=== PATIENT | female | born 1955 | race Caucasian/White ===

== ENCOUNTER 2016-08-11 15:04 | Emergency (ER) | payer OTHER ==
[2016-08-11 15:32] LABS: COLOR COLORLESS; LEUKOCYTE ESTERASE,URINE NEGATIVE (NEGATIVE); NITRITE,URINE NEGATIVE (NEGATIVE)
--- NOTE | 2016-08-11 16:04 | EDPHY ---
H & P Stated Complaint: ABD PAIN AND FLU SYMPTOMS Time Seen by Provider: 08/11/16 16:02 HPI/ROS: CHIEF COMPLAINT: epigastric and abdominal pain HISTORY OF PRESENT ILLNESS: 61-year-old female presents to the emergency department complaining a 2-3 week history of intermittent epigastric and upper abdominal pain that has worsened over the last few days. Patient reports URI symptoms times 2-3 weeks, she was seen at urgent care yesterday and started on a Z-Elias for a sinusitis. Patient states she has been drinking more coffee than usual and has not been eating very much. Patient describes the pain as a burning sensation. She states it is worse when lying flat, better after drinking water, better after eating sometimes. Mild nausea. Patient states she had fevers a week ago with her cold symptoms, no fever in 6 days. No diarrhea, no blood in her stool, no melena. She denies urinary urgency, frequency or dysuria, no previous abdominal surgeries. REVIEW OF SYSTEMS: A comprehensive 10 point review of systems is otherwise negative aside from elements mentioned in the history of present illness. Source: Patient Exam Limitations: No limitations - Personal History Current Tetanus Diphtheria and Acellular Pertussis (TDAP): Yes - Medical/Surgical History Hx Asthma: No Hx Chronic Respiratory Disease: No Hx Diabetes: No Hx Cardiac Disease: No Hx Renal Disease: No Hx Cirrhosis: No Hx Alcoholism: No Hx HIV/AIDS: No Hx Splenectomy or Spleen Trauma: No Other PMH: DENIES - Social History Smoking Status: Never smoked - Physical Exam Exam: Physical Exam Gen: Alert and Oriented, NAD HEENT: PERRL, moist mucous membranes NECK: no meningismus CV: regular rate and regular rhythm PULM: CTAB, no wheezes ABDOMEN: soft, mild epigastric, right upper quadrant and left upper quadrant tenderness to palpation, negative Rovsing's, no rebound tenderness, no guarding , no peritoneal signs, BS present BACK: No CVA tenderness NEURO: Neurologically grossly intact EXTREMITIES: normal appearing SKIN: no rash or break in skin on exposed skin PSYCH: answers questions appropriately. Constitutional: Initial Vital Signs Temperature (C) 37.0 C 08/11/16 15:14 Heart Rate 88 08/11/16 15:14 Respiratory Rate 16 08/11/16 15:14 Blood Pressure 163/85 H 08/11/16 15:14 O2 Sat (%) 96 08/11/16 15:14 O2 Delivery Mode Room Air Allergies/Adverse Reactions: cefdinir [From Omnicef] Allergy (Verified 10/30/15 14:49) Home Medications: Medication Instructions Recorded Azithromycin 08/11/16 IBUPROFEN 08/11/16 Medical Decision Making - Diagnostics EKG Interpretation: EKG shows normal sinus rhythm, rate 80, normal axis, good R-wave progression, no ST or T-wave abnormalities Imaging: Right upper quadrant ultrasound Findings: There are no gallstones, gallbladder wall thickening or pericholecystic fluid. The liver , right kidney, pancreas, and common duct are normal. There is no ascites. The visualized aorta and IVC are normal. Impression: Normal study. Is also discussed with Iván Lacey at 5:00 PM Dictated By: Devin Lyons MD ED Course/Re-evaluation: 530pm-patient reports discomfort is gone after GI cocktail. Right upper quadrant ultrasound is normal. Patient has a normal CBC, normal chemistry panel including LFTs, lipase. EKG is normal, vital signs are normal and urinalysis is normal. I am recommending the patient start 150 mg of ranitidine twice daily for 2 weeks. I have recommended limiting her coffee, spicy, acidic, greasy foods. I discussed small frequent meals, sleeping with the head of her bed elevated and have recommended establishing a primary care doctor. She has been given the name of the 1 promotions officer. Patient has been given return precautions for any worsening symptoms, new symptoms or concerns. Differential Diagnosis: The differential diagnosis for the patient's abdominal pain included but was not limited to cholecystitis, pancreatitis, GERD, gastritis, ACS - Data Points Laboratory Results: Laboratory Results 08/11/16 16:24 08/11/16 16:24 08/11/16 08/11/16 08/11/16 16:24 16:24 15:20 WBC 5.87 10^3/uL 10^3/uL (3.80-9.50) RBC 4.44 10^6/uL 10^6/uL (4.18-5.33) Hgb 13.2 g/dL g/dL (12.6-16.3) Hct 39.0 % % (38.0-47.0) MCV 87.8 fL fL (81.5-99.8) MCH 29.7 pg pg (27.9-34.1) MCHC 33.8 g/dL g/dL (32.4-36.7) RDW 12.5 % % (11.5-15.2) Plt Count 360 10^3/uL 10^3/uL (150-400) MPV 9.9 fL fL (8.7-11.7) Neut % (Auto) 61.8 % % (39.3-74.2) Lymph % (Auto) 31.2 % % (15.0-45.0) [place] % (Auto) 6.1 % % (4.5-13.0) Eos % (Auto) 0.3 % L % (0.6-7.6) Baso % (Auto) 0.3 % % (0.3-1.7) Nucleat RBC Rel Count 0.0 % % (0.0-0.2) Absolute Neuts (auto) 3.62 10^3/uL 10^3/uL (1.70-6.50) Absolute Lymphs (auto) 1.83 10^3/uL 10^3/uL (1.00-3.00) Absolute Monos (auto) 0.36 10^3/uL 10^3/uL (0.30-0.80) Absolute Eos (auto) 0.02 10^3/uL L 10^3/uL (0.03-0.40) Absolute Basos (auto) 0.02 10^3/uL 10^3/uL (0.02-0.10) Absolute Nucleated RBC 0.00 10^3/uL 10^3/uL (0-0.01) Immature Gran % 0.3 % % (0.0-1.1) Immature Gran # 0.02 10^3/uL 10^3/uL (0.00-0.10) Sodium 141 mEq/L mEq/L (134-144) Potassium 3.9 mEq/L mEq/L (3.5-5.2) Chloride 106 mEq/L mEq/L (97-110) Carbon Dioxide 23 mEq/l mEq/l (22-31) Anion Gap 12 mEq/L mEq/L (8-16) BUN 12 mg/dL mg/dL (7-23) Creatinine 0.7 mg/dL mg/dL (0.6-1.0) Estimated GFR > 60 Glucose 92 mg/dL mg/dL (70-100) Calcium 9.8 mg/dL mg/dL (8.5-10.4) Total Bilirubin 1.0 mg/dL mg/dL (0.1-1.4) Conjugated Bilirubin 0.3 mg/dL mg/dL (0.0-0.5) Unconjugated Bilirubin 0.7 mg/dL mg/dL (0.0-1.1) AST 20 IU/L IU/L (14-46) ALT 27 IU/L IU/L (9-52) Alkaline Phosphatase 67 IU/L IU/L (38-126) Total Protein 7.3 g/dL g/dL (6.3-8.2) Albumin 4.4 g/dL g/dL (3.5-5.0) Lipase 108.0 IU/L IU/L (23-300) Urine Color COLORLESS Urine Appearance CLEAR Urine pH 6.0 (5.0-7.5) Ur Specific [place] 1.002 (1.002-1.030) Urine Protein NEGATIVE (NEGATIVE) Urine Ketones NEGATIVE (NEGATIVE) Urine Blood NEGATIVE (NEGATIVE) Urine Nitrate NEGATIVE (NEGATIVE) Urine Bilirubin NEGATIVE (NEGATIVE) Urine Urobilinogen NEGATIVE EU EU (0.2-1.0) Ur Leukocyte Esterase NEGATIVE (NEGATIVE) Urine Glucose NEGATIVE (NEGATIVE) Medications Given: Discontinued Medications Sodium Chloride (Ns) 1,000 mls @ 0 mls/hr IV ONCE ONE PRN Reason: Wide Open Stop: 08/11/16 16:17 Last Admin: 08/11/16 16:15 Dose: 1,000 mls Miscellaneous Medication (Gi Cocktail) 55 ml PO EDNOW ONE Stop: 08/11/16 16:17 Last Admin: 08/11/16 16:58 Dose: 55 ml Departure - Departure Disposition: Home, Routine, Self-Care Clinical Impression: Epigastric pain Gastritis Qualifiers: Gastritis type: unspecified gastritis Chronicity: acute Gastritis bleeding: without bleeding Qualified Code(s): K29.00 - Acute gastritis without bleeding Condition: Good Instructions: Epigastric Pain (ED), Gastritis (ED), Diet for Stomach Ulcers and Gastritis (ED) Additional Instructions: Avoid coffee, spicy, greasy, acidic foods. Eat small frequent meals, sleep with the head of your bed elevated. Take 150 mg Zantac twice daily for 2 weeks. Follow up the primary care doctor listed to establish care. Return to the emergency department for worsening symptoms, new symptoms or concerns. Referrals: Kristen Lloyd MD [Medical Doctor] - As per Instructions (Primary care doctor on-call)
[2016-08-11] MEDS ORDERED: NS 1,000 ML IV ONE (16:16)
[2016-08-11] MEDS ORDERED: MAALOX/LIDO/HYOSC GI COCKTAIL 55 ML BOTTLE PO ONE (16:16)
[2016-08-11 16:40] LABS: % IMMATURE GRANULYOCYTES 0.3 % (0.0-1.1); ABSOLUTE IMMATURE GRANULOCYTES 0.02 10^3/uL (0.00-0.10); ADD DIFF? NO; ADD MORPH? NO; ADD SCAN? NO; ATYPICAL LYMPHOCYTE FLAG 0 (0-99); FRAGMENT RBC FLAG 0 (0-99); HEMOGLOBIN 13.2 g/dL (12.6-16.3); LEFT SHIFT FLG 0 (0-99); LIPEMIA HEMOLYSIS FLAG 90 (0-99); MEAN CELL HEMOGLOBIN 29.7 pg (27.9-34.1); MEAN CELL HEMOGLOBIN CONCENTR. 33.8 g/dL (32.4-36.7); MEAN CELL VOLUME 87.8 fL (81.5-99.8); MEAN PLATELET VOLUME 9.9 fL (8.7-11.7); PLATELET CLUMPS FLAG 10 (0-99); PLATELET COUNT 360 10^3/uL (150-400); RED BLOOD CELL COUNT 4.44 10^6/uL (4.18-5.33); RED CELL DISTRIBUTION WIDTH 12.5 % (11.5-15.2)
--- NOTE | 2016-08-11 17:07 | CPEKG ---
Heart Rate: 80 RR Interval: 750 P-R Interval: 152 QRSD Interval: 98 QT Interval: 404 QTC Interval: 466 P [place]: 78 QRS [place]: 52 T Wave [place]: 61 EKG Severity - NORMAL ECG - EKG Impression: SINUS RHYTHM Electronically Signed By: Gladys Otto 11-Aug-2016 20:43:30
[2016-08-11 17:21] LABS: ALANINE AMINOTRANSFERASE 27 IU/L (9-52); ALBUMIN 4.4 g/dL (3.5-5.0); ALKALINE PHOSPHATASE 67 IU/L (38-126); ANION GAP 12 mEq/L (8-16); ASPARTATE AMINOTRANSFERASE 20 IU/L (14-46); BILIRUBIN-CONJUGATED 0.3 mg/dL (0.0-0.5); BILIRUBIN-UNCONJUGATED 0.7 mg/dL (0.0-1.1); CALCIUM 9.8 mg/dL (8.5-10.4); CARBON DIOXIDE 23 mEq/l (22-31); CHLORIDE 106 mEq/L (97-110); CREATININE 0.7 mg/dL (0.6-1.0); GLOMERULAR FILTRATION RATE > 60; GLUCOSE 92 mg/dL (70-100); POTASSIUM 3.9 mEq/L (3.5-5.2); SODIUM 141 mEq/L (134-144); TOTAL PROTEIN 7.3 g/dL (6.3-8.2)
[2016-08-11 18:16] VITALS: BP 144/78; PULSE 82; RESP 14; TEMP 98.2; O2SAT 97
== END 2016-08-11 18:16 | disposition home or self-care (01) ==
DX: K29.00 Acute gastritis without bleeding (principal)

== ENCOUNTER 2017-08-08 13:19 | Emergency (ER) | payer OTHER ==
[2017-08-08 13:33] VITALS: RESP 16; TEMP 98.2
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
[2017-08-08 14:24] VITALS: BP 125/74; PULSE 85; O2SAT 98
== END 2017-08-08 14:16 | disposition home or self-care (01) ==
LOC: EDUNIT#
DX: S09.90XA Unspecified injury of head, initial encounter (principal); V87.7XXA Person injured in collision between other specified motor vehicles (traffic), initial encounter; Y92.410 Unspecified street and highway as the place of occurrence of the external cause; Y93.89 Activity, other specified

== ENCOUNTER 2018-03-03 18:33 | Emergency (ER) | payer OTHER ==
[2018-03-03 18:41] VITALS: BP 129/91
--- NOTE | 2018-03-03 19:37 | EDPHY ---
H & P Time Seen by Provider: 03/03/18 19:07 HPI/ROS: CHIEF COMPLAINT: Fall with head and back injury HISTORY OF PRESENT ILLNESS: 63-year-old woman presents after falling at home. She was walking on the stairs holding a glass of water and slipped on carpeted stairs at about 4:45 p.m.. She bumped down the stairs on her back and head crashing into the child proof gate at the bottom of the stairs hitting her forehead on the child gate. No loss of consciousness, no vomiting. She only has a very mild tightness in her temples now but really no headache. Some diffuse aching but no specific neck or back pain and no weakness or numbness in extremities. REVIEW OF SYSTEMS: Eye: no change in vision ENT: no sore throat Cardiac: no chest pain or syncope Pulmonary: no cough or SOB Abdomen: no vomiting, diarrhea, abdominal pain Musculoskeletal: HPI Skin: No abrasion or laceration Neuro: HPI, no weakness or numbness in extremities Constitutional: no fever : no urinary symptoms A comprehensive 10 point review of systems is otherwise negative aside from elements mentioned in the history of present illness. 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 Eyes: No scleral icterus. Pupils equal and reactive extraocular motion intact. ENT, Mouth: Normal mucous membranes. No hemotympanum. No external evidence of head trauma on exam. Respiratory: Normal respiratory effort, breath sounds equal, lungs are clear to auscultation. Cardiovascular: Regular rate and rhythm. Gastrointestinal: Abdomen is soft and non tender. Neurological: Alert, face symmetric, normal motor and sensory in extremities. [id number] normal bilaterally and no ataxia. Skin: No laceration or abrasion. Musculoskeletal: No extremity or midline cervical thoracic or lumbar spine tenderness to palpation. Psychiatric: Not agitated. Emergency Department course/MDM: Not anticoagulated, no loss of consciousness, minimal head symptoms now. She does not have red flags to suggest she is at high risk for intracranial bleed, skull fracture, subdural or epidural. Cervical spine cleared clinically by nexus criteria. Patient states she is comfortable with my evaluation and would like to go home with precautions only and no further diagnostics, which is my recommendation. She likely has a mild back contusion as she has some muscular pain but no midline spinal tenderness. She is encouraged to follow-up next week with her primary care physician unless she is completely asymptomatic. Smoking Status: Never smoked Constitutional: Initial Vital Signs Temperature (C) 37 C 03/03/18 18:37 Heart Rate 78 03/03/18 18:37 Respiratory Rate 16 03/03/18 18:37 Blood Pressure 129/91 H 03/03/18 18:37 O2 Sat (%) 97 03/03/18 18:37 O2 Delivery Mode Room Air Allergies/Adverse Reactions: cefdinir [From Omnicef] Allergy (Verified 03/03/18 18:37) Medical Decision Making Differential Diagnosis: Differential diagnosis considered for head injury including but not limited to concussion, skull fracture, intraparenchymal contusion, subarachnoid, subdural and epidural hematoma. Departure - Departure Disposition: Home, Routine, Self-Care Clinical Impression: Head injury Qualifiers: Encounter type: initial encounter Qualified Code(s): S09.90XA - Unspecified injury of head, initial encounter Contusion, back Qualifiers: Encounter type: initial encounter Laterality: unspecified laterality Qualified Code(s): S20.229A - Contusion of unspecified back wall of thorax, initial encounter Condition: Good Instructions: Head Injury (ED) Referrals: SERJIO MARTEL [Retired Resigned] - As per Instructions (Please follow-up with your doctor in the office next week if you're having any symptoms.)
== END 2018-03-03 19:48 | disposition home or self-care (01) ==
DX: S20.229A Contusion of unspecified back wall of thorax, initial encounter (principal); S09.90XA Unspecified injury of head, initial encounter; W10.8XXA Fall (on) (from) other stairs and steps, initial encounter; Y92.018 Other place in single-family (private) house as the place of occurrence of the external cause